=== PATIENT | female | born 1980 ===

== ENCOUNTER 2021-09-25 09:15 | Inpatient (IN) | payer OTHER ==
[~2021-09-25] VITALS: Ht 152.4 cm; Wt 91.6 kg
[2021-09-25] MEDS ORDERED: SYNTHROID50 MCG PO (10:56)
[2021-09-25] MEDS ORDERED: FLOVENT HFA12 G1 IH (10:57)
[2021-09-27] MEDS ORDERED: PROAIR HFA8.5 GM (07:57)
[2021-09-30] MEDS ORDERED: IBUPROFEN800 MG PO (08:23)
== END 2021-09-30 09:07 | disposition home or self-care (01) | DRG 743 ==
LOC: OB/GYN 09-27 05:56 → O/R 09-27 05:56 → SURH 09-27 07:00 → OB/GYN 09-27 11:52 → O/R 09-27 15:56 → OB/GYN 09-27 15:58
PROVIDERS: ADMIT Specialist; ATTEND Specialist
PROC: 0UT70ZZ Resection of Bilateral Fallopian Tubes, Open Approach (ICD-10-PCS; 2021-09-27)
PROC: 0UT90ZZ Resection of Uterus, Open Approach (ICD-10-PCS; principal; 2021-09-27 07:00)
DX: D25.1 Intramural leiomyoma of uterus (principal); D25.2 Subserosal leiomyoma of uterus; N72 Inflammatory disease of cervix uteri; I11.9 Hypertensive heart disease without heart failure; E03.9 Hypothyroidism, unspecified